=== PATIENT | female | born 1945 | race Caucasian/White ===

== ENCOUNTER → 2016-07-01 | Day surgery (SDC) | payer MEDICARE ==
[~2016-07-01] VITALS: Ht 160 cm; Wt 86.0 kg
[~2016-07-01] MED LIST: CYCLOPENTOLATE HCL 1% OPHT SOLN 2 ML BTL ONE; FLURBIPROFEN 0.03% OPHT SOLN 2.5 ML BTL ONE; HYALURONIDASE/LIDOCAINE/EPINEPHRINE/BUPIVACAINE 6 ML SYR ONE; HYDR25TA5 PO; LIDOCAINE HCL 1% 30 ML VIAL ONE; OCUVTAB4 PO; PHENYLEPHRINE HCL 10% OPTH SOLN 5 ML BTL ONE; PHENYLEPHRINE HCL 2.5% OPTH SOLN 2 ML BTL ONE; PRIL20CA9 PO; PROPARACAINE HCL 0.5% OPHT SOLN 15 ML BTL ONE; PROPOFOL 200 MG/20 ML AMP ONE; SODIUM CHLORID 0.9% 500 ML INJ 500 ML ONE; TROPICAMIDE 1% OPHT SOLN 15 ML BTL ONE; VITA10002 PO; VITA2000 PO
[2016-07-01 07:03] VITALS: BP 131/77; PULSE 53; RESP 20; TEMP 97.9; O2SAT 96
[2016-07-01 07:30] VITALS: PULSE 66
[2016-07-01] MEDS: TOBRAMYCIN/DEXAMETHASONE OPTH OINT 3.5 GM TUBE ONE ×2 (08:12→08:30)
[2016-07-01 08:40] VITALS: TEMP 97.1
[2016-07-01 09:00] VITALS: BP 122/80; PULSE 62; RESP 14; O2SAT 96
--- NOTE | 2016-07-04 14:06 | MP ---
cc: TROY BAHENA M.D. DATE OF SURGERY: 07/01/2016. [facility] NUMBER: [id number]. PREOPERATIVE DIAGNOSIS Visually significant cataract right eye. POSTOPERATIVE DIAGNOSIS Visually significant cataract right eye. OPERATION Phacoemulsification with posterior chamber lens implantation, right eye. SURGEON Troy Bahena MD ANESTHESIA Retrobulbar with MAC. COMPLICATIONS None DESCRIPTION OF THE PROCEDURE IN DETAIL: After informed consent was obtained, the patient was brought into the operative suite and placed on appropriate monitors by the Anesthesia Service. The patient had received a prior retrobulbar injection of local anesthetic by the Anesthesia Service in the holding area. The patient's operative eye was then prepped and draped in the usual sterile fashion. A wire lid speculum was placed. A paracentesis incision was made in the peripheral cornea with a 1 mm rebel keratome. The anterior chamber was filled with viscoelastic. The anterior chamber was then entered through a stepped, clear corneal incision using a sharp 3 mm rebel keratome. A circular tear capsulorrhexis was then made with a bent needle cystitome. Following hydrodissection of the lens nucleus with balanced saline, phacoemulsification of the nucleus was performed using a modified chopping technique. The remaining cortex was removed with irrigation/aspiration. The prior two procedures were both performed using the handpieces of the [employer] phaco unit. The capsular bag was then filled with viscoelastic. The intraocular lens was then injected into the capsular bag and positioned. The type of intraocular lens and its power can be found elsewhere in this chart. The remaining viscoelastic was then removed from the anterior chamber with the IA handpiece. The anterior chamber was reformed with balanced saline. The wound was then closed securely with stromal hydration. It was found to be watertight to an intraocular pressure of at least 30 mmHg by palpation. A small amount of balanced salt solution was then removed through the paracentesis site and the intraocular pressure at the end of the case was approximately 20 by palpation. All drapes were then removed. TobraDex ointment was then placed in the eye, which was closed beneath a semi-pressure patch dressing. The patient tolerated this procedure well and left the operating room awake and alert. The patient is to follow-up in my office in the morning. MD NELY Brown/SYD /9:41 AM /2:05 PM
== END | disposition home or self-care (01) ==
LOC: PHSDC 06:11
PROVIDERS: ATTEND Optometrist Occupational Vision
DX: H25.11 Age-related nuclear cataract, right eye (principal)
CPT/HCPCS: 00142; 66984; J7040; V2632

== ENCOUNTER → 2016-08-12 | Day surgery (SDC) | payer MEDICARE ==
[~2016-08-12] VITALS: Ht 160 cm; Wt 86.5 kg
[~2016-08-12] MED LIST changes: -LIDOCAINE HCL 1% 30 ML VIAL ONE; -OCUVTAB4 PO; -PHENYLEPHRINE HCL 2.5% OPTH SOLN 2 ML BTL ONE
[2016-08-12 06:35] VITALS: BP 137/84; PULSE 67; RESP 16; TEMP 97.9; O2SAT 97
[2016-08-12 06:45] VITALS: PULSE 67
[2016-08-12 07:28] VITALS: PULSE 67
[2016-08-12] MEDS: LIDOCAINE HCL 1% PF 30 ML VIAL ONE ×2 (08:37)
[2016-08-12] MEDS: TOBRAMYCIN/DEXAMETHASONE OPTH OINT 3.5 GM TUBE ONE ×2 (08:47)
[2016-08-12 08:55] VITALS: TEMP 97.5
[2016-08-12 09:10] VITALS: BP 130/80; PULSE 62; RESP 16; O2SAT 98
--- NOTE | 2016-08-12 10:48 | MP ---
cc: TROY BAHENA M.D. [facility] #[id number] DATE OF SURGERY 08/12/2016 PREOPERATIVE DIAGNOSIS Visually significant cataract left eye. POSTOPERATIVE DIAGNOSIS Visually significant cataract left eye. OPERATION Phacoemulsification with posterior chamber lens implantation, left eye. SURGEON Troy Bahena MD ANESTHESIA Retrobulbar with MAC. COMPLICATIONS None PROCEDURE After informed consent was obtained, the patient was brought into the operative suite and placed on appropriate monitors by the Anesthesia Service. The patient had received a prior retrobulbar injection of local anesthetic by the Anesthesia Service in the holding area. The patient's operative eye was then prepped and draped in the usual sterile fashion. A wire lid speculum was placed. A paracentesis incision was made in the peripheral cornea with a 1 mm rebel keratome. The anterior chamber was filled with viscoelastic. The anterior chamber was then entered through a stepped, clear corneal incision using a sharp 3 mm rebel keratome. A circular tear capsulorrhexis was then made with a bent needle cystitome. Following hydrodissection of the lens nucleus with balanced saline, phacoemulsification of the nucleus was performed using a modified chopping technique. The remaining cortex was removed with irrigation/aspiration. The prior two procedures were both performed using the handpieces of the [employer] phaco unit. The capsular bag was then filled with viscoelastic. The intraocular lens was then injected into the capsular bag and positioned. The type of intraocular lens and its power can be found elsewhere in this chart. The remaining viscoelastic was then removed from the anterior chamber with the IA handpiece. The anterior chamber was reformed with balanced saline. The wound was then closed securely with stromal hydration. It was found to be watertight to an intraocular pressure of at least 30 mmHg by palpation. A small amount of balanced salt solution was then removed through the paracentesis site and the intraocular pressure at the end of the case was approximately 20 by palpation. All drapes were then removed. TobraDex ointment was then placed in the eye, which was closed beneath a semi-pressure patch dressing. The patient tolerated this procedure well and left the operating room awake and alert. The patient is to follow-up in my office in the morning. MD NELY Brown/NATASHA /10:31 AM /10:42 AM
== END | disposition home or self-care (01) ==
LOC: PHSDC 06:17
PROVIDERS: ATTEND Optometrist Occupational Vision
DX: H25.12 Age-related nuclear cataract, left eye (principal); H43.813 Vitreous degeneration, bilateral; H35.362 Drusen (degenerative) of macula, left eye; H40.20X0 Unspecified primary angle-closure glaucoma, stage unspecified; I70.0 Atherosclerosis of aorta; K21.9 Gastro-esophageal reflux disease without esophagitis; I10 Essential (primary) hypertension; K14.8 Other diseases of tongue
CPT/HCPCS: 66984; J7040; V2632